=== PATIENT | female | born 1965 | race Caucasian/White ===

== ENCOUNTER 2017-12-07 00:12 | Emergency (ER) | payer SELFPAY ==
[2017-12-07] MEDS ORDERED: methylPREDNISolone SOD SUCC 125 MG/2 ML VIAL IM ONE (00:29)
[2017-12-07] MEDS ORDERED: MEPERIDINE HCL/PF 50 MG/ML DISP.SYRIN IM ONE (00:30)
[2017-12-07] MEDS ORDERED: KETOROLAC TROMETHAMINE 30 MG/1ML VIAL IM ONE (00:30)
--- NOTE | 2017-12-07 00:33 | ED Physician Documentation ---
Fall - HISTORIAN Historian: patient - HPI Stated Complaint: low back pain Chief Complaint: Fall Additional Information: fell/tripped at work and fell onto her buttocks, 6 hrs ago, didn't hurt too bad , but has started hurting worse past few hrs. this happened at work, no other complaints Onset: hours Where: work Context: tripped r: mild Associated Symptoms:: denies: no loss of consciousness Location of Pain/Injury: lower back Injury to Right Extremity: none Injury to Left Extremity: none Further Comments: no - ROS CONST: no problems NEURO: denies: dizziness, anxiety, depression MS/SKIN/LYMPH: back pain. denies: weakness, numbness, neck pain EYES/ENT: none CVS/RESP: none GI/: denies: problems urinating, nausea, vomiting - PAST HX Past History: none Allergies/Adverse Reactions: Allergies Allergy/AdvReac Type Severity Reaction Status Date / Time Penicillins Allergy Severe Hives Verified 12/07/17 00:24 sulfamethoxazole Allergy Intermediate hive Verified 12/07/17 00:24 [From Bactrim] trimethoprim [From Bactrim] Allergy Intermediate hive Verified 12/07/17 00:24 Home Medications: Ambulatory Orders Medication Instructions Recorded NK [NK] 12/07/17 - SOCIAL HX Smoking History: non-smoker Alcohol Use: none Drug Use: none - FAMILY HX Family History: none - VITAL SIGNS Vital Signs: Vital Signs Temp Pulse Resp BP Pulse Ox 168/78 12/10/12 20:30 - REVIEWED ASSESSMENTS Nursing Assessment Reviewed: Yes Vitals Reviewed: Yes ED Results Lab/Radiology - Orders Orders: ED Orders Category Date Time Status Ketorolac Tromethamine [Toradol] Med 12/07/17 00:30 Once 30 mg IM NOW ONE Meperidine HCl/Pf [Demerol] Med 12/07/17 00:30 Once 25 mg IM NOW ONE methylPREDNISolone SOD SUCC [Solu-MEDROL] Med 12/07/17 00:29 Once 125 mg IM NOW ONE Fall Physical Exam - Physical Exam General Appearance: no acute distress, alert Head: non-tender, no swelling, no obvious injury Neck: non-tender, painless ROM Eye: EOMI ENT: nml external inspection Resp/CVS: no resp. distress Abdomen: soft Neuro: oriented x3, sensation nml, motor nml, mood/affect nml Skin: color nml, no rash Back: no vertebral tenderness, muscle spasm (mainly low lumbar radiating to left ), other (negative straight leg raise to 90) Extremities: atraumatic, hips non-tender Joint: nml ROM, Nml gait/weight bearing - [place] Coma Score Eyes Open: Spontaneous Speech: Oriented Motor: Obeys Commands Discharge Clincal Impression: Contusion of lower back and pelvis, initial encounter Low back sprain Qualifiers: Encounter type: initial encounter Qualified Code(s): S33.9XXA - Sprain of unspecified parts of lumbar spine and pelvis, initial encounter Clincal Impression: (Ruled Out): Contusion of lower back and pelvis, sequela Referrals: Primary Doctor,No [Primary Care Provider] - 2 Days Condition: Stable Disposition: 01 HOME, SELF-CARE Decision to Admit: NO Date of Decison to Admit: 12/07/17 Decision Time: 00:37
[2017-12-07 01:00] VITALS: BP 169/110
== END 2017-12-07 00:48 | disposition home or self-care (01) ==
LOC: ED 00:12
DX: S33.9XXA Sprain of unspecified parts of lumbar spine and pelvis, initial encounter (principal); W01.0XXA Fall on same level from slipping, tripping and stumbling without subsequent striking against object, initial encounter; Y93.9 Activity, unspecified; Y92.9 Unspecified place or not applicable; Y99.0 Civilian activity done for income or pay
CPT/HCPCS: J1885; J2175; J2930; 96372; 99283